=== PATIENT | female | born 1995 | race Caucasian/White ===

== ENCOUNTER 2021-05-02 18:11 | Emergency (ER) | payer OTHER | END 2021-05-02 19:30 | disposition home or self-care (01) | LOC: ER1 18:11 | DX: S51.812A Laceration without foreign body of left forearm, initial encounter (principal); Z88.0 Allergy status to penicillin; W26.8XXA Contact with other sharp object(s), not elsewhere classified, initial encounter | CPT/HCPCS: 12001; 99282 ==

== ENCOUNTER 2021-06-25 12:37 | Emergency (ER) | payer OTHER ==
[2021-06-25 13:28] LABS: RED BLOOD COUNT 3.87 M/UL (4.00-5.10); WHITE BLOOD COUNT 10.2 K/UL (4.5-11.0)
[2021-06-25 13:48] LABS: BUN/CREATININE RATIO 17 (0-10)
[2021-06-25] MEDS ORDERED: BENTYL 20MG TAB20 MG PO (21:51)
[2021-06-25] MEDS ORDERED: ZOFRAN ODT 4 MG4 MG PO (21:51)
== END 2021-06-25 22:00 | disposition home or self-care (01) ==
LOC: ER1 12:37
PROVIDERS: Nurse Practitioner
DX: N83.201 Unspecified ovarian cyst, right side (principal); Z88.0 Allergy status to penicillin; E03.9 Hypothyroidism, unspecified
CPT/HCPCS: 76830; 80053; 81001; 84703; 85025; 96374; 99284; J1885; J7030; Q9967